=== PATIENT | female | born 1990 | race Caucasian/White ===

== ENCOUNTER 2018-06-24 22:02 | Emergency (ER) | payer BC ==
[2018-06-24 22:07] VITALS: BMI 23.8
--- NOTE | 2018-06-24 22:23 | PDOC ---
History of Present Illness - General Chief Complaint: Diarrhea Stated Complaint: FEVER, DIARRHEA, HEADACHE, BODYACHE Time Seen by Provider: 06/24/18 22:18 History Source: Patient Exam Limitations: No Limitations - History of Present Illness Initial Comments: 06/24/18 22:36 HISTORY OF PRESENT ILLNESS: This is a 28-year-old woman who denies medical history of presents emergency Department with 1 day of fevers, chills, myalgias , abdominal pain, nausea, diarrhea. Patient states she had [place]ian food for dinner last night and after eating couple of bites of food she felt a "knot" in her stomach which is slowly progressed to a nauseous feeling. Patient denies any vomiting. Patient reports having 3 loose stools today with the last one being brown and watery. Patient reports her significant other and son both ate [place] food and have no symptoms. Patient has not checked her temperature but reports subjective fevers. She denies blurry vision, chest pain, shortness of breath. 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 PAST MEDICAL HISTORY: Denies past medical history SURGICAL HISTORY: Denies ALLERGIES: No known drug allergies REVIEW OF SYSTEMS General/Constitutional: +fever and chills. Denies weakness, weight change. HEENT: Denies change in vision. Denies ear pain or discharge. Denies sore throat. Cardiovascular: Denies chest pain or shortness of breath. Respiratory: Denies cough, wheezing, or hemoptysis. Gastrointestinal: Denies vomiting or constipation. Denies rectal bleeding. + nausea, brown watery diarrhea Genitourinary: Denies dysuria, frequency, or change in urination. Musculoskeletal: +myalgias. Denies neck or back pain. Skin and breasts: Denies rash or easy bruising. Neurologic: Denies headache, vertigo, loss of consciousness, or loss of sensation. Psychiatric: Denies depression or anxiety. Endocrine: Denies increased thirst. Denies abnormal weight change. Hematologic/Lymphatic: Denies anemia, easy bleeding, or history of blood clots. Allergic/Immunologic: Denies hives or skin allergy. Denies latex allergy. PHYSICAL EXAM General Appearance: Well-appearing, appropriately dressed. No apparent distress , no intoxication. HEENT: EOMI, PERRLA, normal ENT inspection, normal voice, TMs normal, pharynx normal. No conjunctival pallor. No photophobia, scleral icterus. Neck: Supple. Trachea midline. No tenderness, rigidity, carotid bruit, stridor , lymphadenopathy, or thyromegaly. Respiratory/Chest: Lungs CTAB. No shortness of breath, chest tenderness, respiratory distress, accessory muscle use. No crackles, rales, rhonchi, stridor , wheezing, dullness Cardiovascular: RRR. S1, S2. No JVD, murmur, bradycardia, tachycardia. Vascular Pulses: Dorsalis-Pedis (R): 2+, Dorsalis-Pedis (L): 2+ Gastrointestinal/Abdominal: Normal bowel sounds. Abdomen soft, non-distended. No tenderness or rebound tenderness. No organomegaly, pulsatile mass, guarding, hernia, hepatomegaly, splenomegaly. Lymphatic: No adenopathy, tenderness. Musculoskeletal/Extremities: Normal inspection. FROM of all extremities, normal capillary refill. Pelvis Stable. No CVA tenderness. No tenderness to extremities, pedal edema, swelling, erythema or deformity. Integumentary: Appropriate color, dry, warm. No cyanosis, erythema, jaundice or rash Neurologic: porcelain enameler II-XII intact. Fully oriented, alert. Appropriate mood/affect. Motor strength 5/5. No appreciable EOM palsy, facial droop or sensory deficit. Past History - Past Medical History Allergies/Adverse Reactions: Allergies Allergy/AdvReac Type Severity Reaction Status Date / Time No Known Allergies Allergy Verified 06/24/18 22:07 Home Medications: Ambulatory Orders Vit/Iron Fum/Folic AC [ Tablet] 1 each PO DAILY 03/30/16 Ibuprofen [Motrin -] 600 mg PO QID #28 tablet 04/02/16 Ciprofloxacin [Cipro (Restricted To Id)] 500 mg PO Q12H #10 tablet 06/25/18 Asthma: No Cancer: No Cardiac Disorders: No COPD: No Diabetes: No HTN: No Seizures: No Thyroid Disease: No - Suicide/Smoking/Psychosocial Hx Smoking Status: No Smoking History: Never smoked Have you smoked in the past 12 months: No Number of Cigarettes Smoked Daily: 0 Hx Alcohol Use: No Drug/Substance Use Hx: No Hx Substance Use Treatment: No *Physical Exam - Vital Signs Last Vital Signs Temp Pulse Resp BP Pulse Ox 99.4 F 120 H 18 118/62 100 06/24/18 22:05 06/24/18 22:05 06/24/18 22:05 06/24/18 22:05 06/24/18 22:05 ED Treatment Course - LABORATORY CBC & Chemistry Diagram: 06/24/18 22:42 06/24/18 22:42 Medical Decision Making - Medical Decision Making 06/24/18 22:41 A/P: 28-year-old female with 1 day of subjective fevers, myalgias, nausea and diarrhea Heart rate- 120 Normoactive bowel sounds Abdomen soft nontender nondistended DDx: CARLY, electrolyte imbalance, colitis, influenza, infectious diarrhea Labs, urine, stool, IV fluids, Zofran, influenza testing, EKG 06/25/18 02:15 Laboratory testing reveals WBC of 16.9 with a left shift. CAT scan as read by imaging director of first impressions: Mild diffuse colitis could be due to infection or inflammatory bowel disease. Influenza testing is negative. EKG is reviewed by me and interpreted by Dr. Hernandez: Sinus tachycardia with rate of 118. Normal intervals noted. No ischemic changes present 06/25/18 03:55 Heart rate 104 after receiving 2 L of fluid. Patient still with a mild headache after receiving Tylenol. We'll give Motrin 600 mg orally now and discharge home. *DC/Admit/Observation/Transfer Diagnosis at time of Disposition: Colitis presumed infectious - Discharge Dispostion Disposition: HOME Condition at time of disposition: Stable Decision to Admit order: No - Prescriptions Prescriptions: Ciprofloxacin [Cipro (Restricted To Id)] 500 mg PO Q12H #10 tablet - Referrals Referrals: Devi Reddy MD [Primary Care Provider] - - Patient Instructions Printed Discharge Instructions: DI for Colitis Additional Instructions: Take Cipro 500 mg twice a day until all the medications or been completed. Drink plenty of fluids Eat bland foods until symptoms resolve. Return to emergency department for any worsening symptoms. Thank you very much for choosing us to provide your emergent health care needs. - Post Discharge Activity Forms/Work/School Notes: Back to Work
[2018-06-24] MEDS ORDERED: ONDANSETRON 4 MG/2 ML VIAL IVPUSH ONE (22:33)
[2018-06-24] MEDS ORDERED: SODIUM CHLORIDE 1,000 ML IV STA (22:33)
[2018-06-24 22:52] LABS: BASO % 0.2 % (0-2.0); HEMATOCRIT 37.6 % (32.4-45.2); HEMOGLOBIN 12.5 GM/dL (10.7-15.3); LYMPH % 5.1 % (8-40); MCH 29.7 pg (25.7-33.7); MCHC 33.2 g/dl (32.0-36.0); MEAN CELL VOLUME 89.5 fl (80-96); MEAN PLT VOLUME 9.2 fl (7.5-11.1); MONO % 4.3 % (3.8-10.2); NEUT % 90.4 % (42.8-82.8); PLATELET COUNT 257 K/MM3 (134-434); RDW 13.9 % (11.6-15.6); WHITE BLOOD COUNT 16.9 K/mm3 (4.0-10.0)
[2018-06-24 23:23] LABS: ALBUMIN 3.7 g/dl (3.4-5.0); ALK PHOS 64 U/L (45-117); ANION GAP 8 MMOL/L (8-16); BILIRUBIN,TOTAL 0.8 mg/dL (0.2-1); BLOOD UREA NITROGEN 11 mg/dL (7-18); CALCIUM 8.3 mg/dL (8.5-10.1); CHLORIDE 105 mmol/L (98-107); CO2 24 mmol/L (21-32); CREATININE 0.8 mg/dL (0.55-1.3); GLUCOSE,RANDOM 128 mg/dL (74-106); LIPASE 138 U/L (73-393); POTASSIUM 3.9 mmol/L (3.5-5.1); SGOT/AST 16 U/L (15-37); SGPT/ALT 12 U/L (13-61); SODIUM 137 mmol/L (136-145); TOT PROT 6.9 g/dl (6.4-8.2)
[2018-06-25] MEDS ORDERED: SODIUM CHLORIDE 1,000 ML IV STA (00:28)
[2018-06-25 01:12] LABS: URINE APPEARANCE CLEAR; URINE BILIRUBIN NEGATIVE (<2.0 mg/dL); URINE COLOR YELLOW; URINE GLUCOSE (UA) NEGATIVE (NEGATIVE); URINE KETONE TRACE (NEGATIVE); URINE LEUK ESTERASE NEGATIVE (NEGATIVE); URINE NITRITE NEGATIVE (NEGATIVE); URINE PROTEIN NEGATIVE (NEGATIVE); URINE UROBILINOGEN NEGATIVE mg/dL (0.2-1.0)
[2018-06-25 01:16] LABS: EPI CELLS RARE /HPF (FEW); URINE BACTERIA RARE /hpf (NONE SEEN); URINE HYALINE CAST 1 /lpf; URINE MUCUS MANY
[2018-06-25 02:14] VITALS: BP 106/75; TEMP 98.5
[2018-06-25] MEDS ORDERED: ACETAMINOPHEN 500 MG TABLET (FP) PO ONE (02:19)
[2018-06-25] MEDS ORDERED: ACETAMINOPHEN 325 MG TABLET (FP) ONE (02:43)
[2018-06-25] MEDS ORDERED: IBUPROFEN 600 MG TABLET (FP) PO ONE ×2 (03:51→04:32)
[2018-06-25 04:31] VITALS: PULSE 103
--- NOTE | 2018-06-25 18:50 | EKG ---
Test Reason : Blood Pressure : / mmHG Vent. Rate : 118 BPM Atrial Rate : 118 BPM P-R Int : 162 ms QRS Dur : 066 ms QT Int : 306 ms P-R-T Axes : 058 083 056 degrees QTc Int : 428 ms SINUS TACHYCARDIA NONSPECIFIC T WAVE ABNORMALITY ABNORMAL ECG NO PREVIOUS ECGS AVAILABLE Confirmed by GENI EATON MD ([id number]) on 06/25/2018 6:50:23 PM Referred By: Confirmed By:GENI EATON MD
== END 2018-06-25 04:53 | disposition home or self-care (01) ==
LOC: JER 22:02
PROC: 3E0337Z Introduction of Electrolytic and Water Balance Substance into Peripheral Vein, Percutaneous Approach (ICD-10-PCS; principal; 2018-06-24)
DX: K52.89 Other specified noninfective gastroenteritis and colitis (principal)
CPT/HCPCS: 36415; 74177-TC; 80053; 81003; 81015; 83690; 84703; 85025; 87086; 87804; 93005; 93010; 99284-25; J7030

== ENCOUNTER 2019-07-11 07:35 | Inpatient (IN) | payer BC, OTHER ==
[2019-07-11] MEDS ORDERED: DINOPROSTONE 10 MG VAGINAL SUPPOSITORY VG ONE (07:45)
--- NOTE | 2019-07-11 08:39 | HP ---
Past Medical History - Primary Care Physician PCP:: Jeffry Owens - Admission Chief Complaint: 29yo P1 with at EGA 40w0d admitted for labor indx. History of Present Illness: complicated by post dates . History Source: Patient Limitations to Obtaining History: No Limitations - Past Medical History CREMATOR: No: Alzheimer's, CVA, Dementia, Migraine, Multiple Sclerosis, Peripheral Neuropathy, Parkinson's, Seizure, Syncope, TIA, Vertigo, Other Cardiovascular: No: AFIB, Aneurysm, Aortic Insufficiency, Aortic Stenosis, CAD, CHF, Deep Vein Thrombosis, HTN, Hyperlipdemia, [place], Mitral Insufficiency, Mitral Stenosis, Murmur, Pulmonary Hypertension, Other Pulmonary: No: Asthma, Bronchitis, Cancer, COPD, O2 Dependent, Pneumonia, Previously Intubated, Pulmonary Embolus, Pulmonary Fibrosis, Sleep Apnea, Other Gastrointestinal: No: Ascites, Cancer, Constipation, Crohn's Disease, Diverticulitis, Diverticulosis, Esophageal Varices, Gastritis, GERD, GI Bleed, Hemorrhoids, Hiatal Hernia, Inflamatory Bowel Disease, Irritable Bowel Disease, Pancreatitis, Peptic Ulcer Disease, Ulcerative Colitis, Other Hepatobiliary: No: Cirrhosis, Cholelithiasis, Cholecystitis, Choledocholithiasis , Hepatitis A, Hepatitis B, Hepatitis C, Other Renal/: No: Renal Failure, Renal Inusuff, BPH, Cancer, Hematuria, Hemodialysis , Neurogenic Bladder, Renal Calculi, UTI, Other Reproductive: No: Ectopic , Endometriosis, Fibroids, PID, Polycystic Ovary Syndrome, Postmenopausal, Other ...: 2 ...Para: 1 () ... Weeks Gestation by Dates: 40 Heme/Onc: No: Anemia, B12 Deficiency, Bleeding Disorder, Cancer, Current Chemotherapy, Current Radiation Therapy, Hemochromatosis, Hypercoaguable State, Myeloproliferative Synd, Sickle Cell Disease, Sickle Cell Trait, Thrombocytopenia, Other Infectious Disease: No: AIDS, C-Diff, Herpes Zoster, HIV, MRSA, STD's, Tuberculosis, VREF, Other Psych: No: Addictions, Anxiety, Bipolar, Depression, Panic, Psychosis, Schizophrenia, Other Musculoskeletal: No: Bursitis, Chronic low back pain, Hemiparesis, Hemiplegia, Osteoarthritis, Paraplegia, Other Rheumatology: No: Fibromyalgia, Gout, Lupus, Rheumatoid Arthritis, Sarcoidosis, Vasculitis, Other ENT: No: Allergic Rhinitis, Sinusitis, Other Endocrine: No: [place]'s Disease, Rankin's Disease, Diabetes Insipidus, Diabetes Mellitus, Hyperparathyroidism, Hyperthyroidism, Hypothyroidism, Osteopenia, SIADH, Other - Past Surgical History Past Surgical History: Yes: None Hx Myomectomy: No Hx Transabdominal Cerclage: No - Smoking History Smoking history: Never smoked Have you smoked in the past 12 months: No Aproximately how many cigarettes per day: 0 - Alcohol/Substance Use Hx Alcohol Use: No History of Substance Use: reports: None - Social History Usual Living Arrangement: Yes: With Spouse, With Child Do you think of yourself as: Straight/Heterosexual ADL: Independent 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 History of Recent Travel: No Home Medications - Allergies Allergies/Adverse Reactions: Allergies Allergy/AdvReac Type Severity Reaction Status Date / Time No Known Allergies Allergy Verified 07/04/19 09:47 - Home Medications Home Medications: Ambulatory Orders Vit/Iron Fum/Folic AC [ Tablet] 1 each PO DAILY 03/30/16 Family Medical History Family Hx Cancer: Mother (colon cancer) Review of Systems - Review of Systems Constitutional: reports: No Symptoms Eyes: reports: No Symptoms HENT: reports: No Symptoms Neck: reports: No Symptoms Cardiovascular: reports: No Symptoms Respiratory: reports: No Symptoms Gastrointestinal: reports: No Symptoms Genitourinary: reports: No Symptoms Breasts: reports: No Symptoms Reported Musculoskeletal: reports: No Symptoms Integumentary: reports: No Symptoms Neurological: reports: No Symptoms Endocrine: reports: No Symptoms Hematology/Lymphatic: reports: No Symptoms Psychiatric: reports: No Symptoms Pain Intensity: 0 Physical Exam - Maternity Constitutional: Yes: Well Nourished, No Distress, Calm Eyes: Yes: WNL, Conjunctiva Clear HENT: Yes: WNL, Atraumatic, Normocephalic Neck: Yes: WNL, Supple, Trachea Midline Cardiovascular: Yes: WNL, Regular Rate and Rhythm Lungs: Clear to auscultation, Normal air movement - Abdominal Exam/OB Fundal Height: 40 Number of Fetuses: Single Presentation: Vertex Contractions: Yes Regularity: Irritability Intensity: Unaware Heart Rate (range): 140 Heart Rate Location: Midline Category: I Accelerations: Non-Uniform Decelerations: None - Vaginal Exam/OB Vaginal Bleediing: No Speculum Exam: No Dilatation (cm): 0 Effacement (%): 50 Amniotic Membrane Status: Intact Station: -4 (Gynecoid pelvimetry) - Physical Exam Musculoskeletal: Yes: WNL Extremities: Yes: WNL Edema: Yes Integumentary: Yes: WNL Deep Tendon Reflex Grade: Normal +2 ...Motor Strength: WNL Psychiatric: Yes: WNL, Alert, Oriented Hemorrhage Risk Assessment - Risk Factors Medium Risk Factors: Yes: None High Risk Factors: Yes: None Risk Score: 1 Risk Level: Medium Risk Imaging - Results Ultrasound: Report Reviewed Assessment/Plan 29yo P1 with at EGA 40w0d admitted for labor indx. Fetus with Category I tracing. Adequate gynecoid pelvimetry. EFW 7.5 lb by Dylan maneuvers. Pt is not in labor. We discussed labor indx. plan for Cervidil cervical ripening followed by pitocin.
[2019-07-11] MEDS ORDERED: DEXTROSE 5%-LACTATED RINGERS 1,000 ML IV SCH (08:45)
[2019-07-11 08:48] VITALS: BMI 35.3
[2019-07-11 09:32] LABS: BASO % 0.4 % (0-2.0); EOS % 1.4 % (0-4.5); HEMATOCRIT 35.6 % (32.4-45.2); HEMOGLOBIN 12.3 GM/dL (10.7-15.3); MCH 32.4 pg (25.7-33.7); MCHC 34.5 g/dl (32.0-36.0); MEAN CELL VOLUME 93.8 fl (80-96); MEAN PLT VOLUME 10.1 fl (7.5-11.1); MONO % 5.2 % (3.8-10.2); PLATELET COUNT 181 K/MM3 (134-434); RBC 3.79 M/mm3 (3.60-5.2); RDW 13.9 % (11.6-15.6); WHITE BLOOD COUNT 9.5 K/mm3 (4.0-10.0)
[2019-07-11 09:50] LABS: INR 0.9 (0.83-1.09); PROTHROMBIN TIME (PATIENT) 10.6 SEC (9.7-13.0)
[2019-07-11 09:53] LABS: ACTIVATED PTT 28.4 SECONDS (25.2-36.5)
[2019-07-11 10:00] LABS: BLOOD UREA NITROGEN 7.5 mg/dL (7-18); CALCIUM 8.8 mg/dL (8.5-10.1); CREATININE 0.6 mg/dL (0.55-1.3); POTASSIUM 4.1 mmol/L (3.5-5.1)
[2019-07-11] MEDS ORDERED: BUTORPHANOL TARTRATE 2 MG/ML VIAL IVPUSH ONE (14:00)
[2019-07-11] MEDS ORDERED: PROMETHAZINE HCL 25 MG/1 ML VIAL IVPB ONE (14:00)
[2019-07-11] MEDS ORDERED: BUTORPHANOL TARTRATE 1 MG/ML VIAL ONE ×2 (14:24)
[2019-07-11] MEDS ORDERED: PROMETHAZINE HCL 25 MG/1 ML VIAL ONE (14:24)
[2019-07-11] MEDS ORDERED: FENTANYL/BUPIVACAINE/NS/PF - PCEA - 50 ML DISP.SYRIN EP ONE (14:28)
[2019-07-11] MEDS ORDERED: NALOXONE HCL 0.4 MG/ML VIAL IVPUSH PRN (14:39)
[2019-07-11] MEDS ORDERED: LIDO 2%/EPI 1:200000 PRESRVFRE (20 ML SDVIAL) ONE (14:44)
[2019-07-11] MEDS: FENTANYL/BUPIVACAINE/NS/PF - PCEA - 50 ML DISP.SYRIN EP SCH (14:55)
[2019-07-11] MEDS ORDERED: TERBUTALINE SULFATE 1 MG/1 ML VIAL SQ ONE ×2 (15:19→15:59)
[2019-07-11] MEDS ORDERED: ELECTROLYTE-148 SOLN 1,000 ML IV SCH (16:00)
--- NOTE | 2019-07-11 16:19 | PN ---
Ante-Partal Exam - Subjective Subjective: Pt had Cervidil removed due to tachysystole at 2pm. She then requested an epidural for pain Pt had several variable and prolonged decels with baseline at 170 at 2:56pm after the epidural was placed. The pt was given IV fluids bolus, changed to later position and administered O2 by face mask. Pt is comfortable with epidural. The contractions were still noted to be trippling and sometimes q 1min. Since late decels were noted, the patient was given Terbutaline SQ x 1 to treat tachysystole. Now the contractions have spaced out to q 3min. The baseline is 160 with moderate variability and accels; no decels. Vital Signs: Vital Signs Temperature 98.1 F 07/11/19 15:00 Pulse Rate 95 H 07/11/19 14:55 Respiratory Rate 20 07/11/19 14:55 Blood Pressure 125/53 L 07/11/19 14:55 O2 Sat by Pulse Oximetry (%) 98 07/11/19 14:55 Bleeding: No Headache: No Visual changes: No Right upper quadrant pain: No Pain (scale 1-10): 0 - Contractions Contractions: Yes Regularity: Regular Intensity: Mild/Mod Monitor Mode: External - Exam during Labor Heart Rate: 150 Variability: Moderate Heart Rate Location: Midline Category: I Monitor Accelerations: Present Monitor Decelerations: None Exam: Vaginal Dilatation (cm): 4 Effacement (%): 80 Amniotic Membrane Status: Bulging Presentation: Vertex Station: -2 - Intrapartum Hemorrhage Risk Medium Risk Factors: None High Risk Factors: None Risk Score: 0 Risk Level: Low Risk - Assessment/Plan Assessment/Plan: Monitor labor and fetus. Plan to AROM and .
[2019-07-11] MEDS ORDERED: LIDOCAINE HCL 1% PRESERVATIVE FREE - 30ML VIAL ONE (18:59)
[2019-07-11] MEDS ORDERED: OXYTOCIN 20 UNITS in 0.9% NS 20 UNIT/1,000 ML INFUS.BAG IV ONE (18:59)
[2019-07-11] MEDS ORDERED: METHYLERGONOVINE MALEATE 0.2 MG/1 ML AMP IM PRN (19:23)
[2019-07-11] MEDS ORDERED: ACETAMINOPHEN 325 MG TABLET (FP) PO PRN (19:23)
[2019-07-11] MEDS ORDERED: BENZOCAINE 20% 57 GM BOTTLE TP PRN (19:23)
[2019-07-11] MEDS ORDERED: WITCH HAZEL 50% (TUCKS) 40 PAD/JAR PAD TP PRN (19:23)
[2019-07-11] MEDS ORDERED: BENZOCAINE 28 GM HEMORRHOIDAL OINTMENT TP PRN (19:23)
[2019-07-11] MEDS ORDERED: BISACODYL 10 MG SUPP.RECT RC PRN (19:23)
[2019-07-11] MEDS ORDERED: OXYTOCIN 20 UNITS in 0.9% NS 20 UNIT/1,000 ML INFUS.BAG IV SCH (19:30)
[2019-07-12] MEDS: IBUPROFEN 600 MG TABLET (FP) PO PRN ×2 (06:00→23:15)
[2019-07-12 08:06] LABS: BASO % 0.4 % (0-2.0); EOS % 0.7 % (0-4.5); HEMATOCRIT 34.6 % (32.4-45.2); HEMOGLOBIN 11.3 GM/dL (10.7-15.3); LYMPH % 15.3 % (8-40); MCH 31.2 pg (25.7-33.7); MCHC 32.8 g/dl (32.0-36.0); MEAN CELL VOLUME 94.9 fl (80-96); MEAN PLT VOLUME 10.1 fl (7.5-11.1); MONO % 5.8 % (3.8-10.2); NEUT % 77.8 % (42.8-82.8); PLATELET COUNT 168 K/MM3 (134-434); RBC 3.64 M/mm3 (3.60-5.2); RDW 14.1 % (11.6-15.6); WHITE BLOOD COUNT 12.5 K/mm3 (4.0-10.0)
[2019-07-12] MEDS: PRENATAL VITAMINS W/ FOLIC ACID TABLET (FP) PO SCH (11:00)
--- NOTE | 2019-07-12 11:45 | PN ---
Delivery - Delivery Vaginal Delivery: No Problems, Spontaneous Type of Anesthesia: Epidural Episiotomy/Laceration: None EBL (cc): 300 Delivery, Single - Stages of Labor Date 1st Stage Initiatied: 07/11/19 Time 1st Stage Initiated: 16:30 Date 2nd Stage Initiated: 07/11/19 Time 2nd Stage Initiated: 18:45 Date of Delivery: 07/11/19 Time of Delivery: 19:08 Date Placenta Delivered: 07/11/19 Time Placenta Delivered: 19:15 Placenta: Yes: Spontaneous, Normal Configuration - Condition of Infant Founder Ceo & President/Tune Up Mechanic Present: No Gender: Female Weight: 4.082 kg Position: Left, OA Total Hours ROM (Hrs/Mins): 2hr45 - 1 Minute Total Score: 9 5 Minutes Total Score: 9 - Feeding Plan Initial Plan: Exclusive throughout hospitalization Benefits of Exclusively reinforced: Yes Remarks - Remarks Remarks: w/o complications.
[2019-07-12] MEDS ORDERED: SENNOSIDES/DOCUSATE COMBO (SENNA PLUS) TABLET (UD) PO PRN (22:00)
[2019-07-12] MEDS: FENTANYL/BUPIVACAINE/NS/PF - PCEA - 50 ML DISP.SYRIN EP SCH (22:14)
--- NOTE | 2019-07-13 08:05 | PN ---
Post Progress Note - Subjective Subjective: Patient without acute complaints. Reports tolerating oral intake without nausea or vomiting. Ambulating without dizziness. Denies fevers or chills. Pain well controlled with oral pain medication. without difficulty. Passing flatus. Post Day: 2 Type of Delivery: Vital Signs: Vital Signs Temperature 98.8 F 07/12/19 22:00 Pulse Rate 74 07/12/19 22:00 Respiratory Rate 18 07/12/19 22:00 Blood Pressure 107/59 L 07/12/19 22:00 O2 Sat by Pulse Oximetry (%) 99 07/11/19 20:15 Breast Exam: Yes: Soft Uterus: Yes: Fundus Firm, Fundus below umbilicus Abdomen/GI: Yes: Abdomen soft, Passing flatus, Tolerating PO. No: Abdominal Distention, Tender Lochia: Yes: Rubra Lochia, amount: Small Extremities: Yes: Calves non-tender. No: Edema Activity: Ambulating - Labs Labs: CBC WBC 12.5 K/mm3 (4.0-10.0) H 07/12/19 07:40 RBC 3.64 M/mm3 (3.60-5.2) 07/12/19 07:40 Hgb 11.3 GM/dL (10.7-15.3) 07/12/19 07:40 Hct 34.6 % (32.4-45.2) 07/12/19 07:40 MCV 94.9 fl (80-96) 07/12/19 07:40 MCH 31.2 pg (25.7-33.7) 07/12/19 07:40 MCHC 32.8 g/dl (32.0-36.0) 07/12/19 07:40 RDW 14.1 % (11.6-15.6) 07/12/19 07:40 Plt Count 168 K/MM3 (134-434) 07/12/19 07:40 MPV 10.1 fl (7.5-11.1) 07/12/19 07:40 Absolute Neuts (auto) 9.7 K/mm3 (1.5-8.0) H 07/12/19 07:40 Neutrophils % 77.8 % (42.8-82.8) 07/12/19 07:40 Lymphocytes % 15.3 % (8-40) 07/12/19 07:40 Monocytes % 5.8 % (3.8-10.2) 07/12/19 07:40 Eosinophils % 0.7 % (0-4.5) 07/12/19 07:40 Basophils % 0.4 % (0-2.0) 07/12/19 07:40 Nucleated RBC % 0 % (0-0) 07/12/19 07:40 Assessment/Plan 29 yo PPD # 2 s/p , afebrile, vital signs stable, doing well 1. Patient stable for discharge home today. 2. Patient encouraged to contact MD for: - Severe pain not controlled by oral pain medication - Fevers or chills - Nausea or vomiting, intolerance of oral intake 3. Patient to follow up in office in 4-6 weeks for visit
[2019-07-13 08:07] VITALS: BP 102/58; PULSE 66; TEMP 98.3
[2019-07-13] MEDS: PRENATAL VITAMINS W/ FOLIC ACID TABLET (FP) PO SCH (10:01)
== END 2019-07-13 11:40 | disposition home or self-care (01) | DRG 807 ==
LOC: JLDR 07:35 → J3W 22:41
PROVIDERS: ADMIT Obstetrics & Gynecology; ATTEND Obstetrics & Gynecology
PROC: 10E0XZZ Delivery of Products of Conception, External Approach (ICD-10-PCS; principal; 2019-07-11)
DX: O48.0 Post-term pregnancy (principal); O69.81X0 Labor and delivery complicated by cord around neck, without compression, not applicable or unspecified; Z3A.40 40 weeks gestation of pregnancy; Z37.0 Single live birth
CPT/HCPCS: 36415; 36600; 59409; 80048; 82803; 85025; 85610; 85730; 86593; 86850; 86900; 86901

== ENCOUNTER 2021-06-17 12:30 | Inpatient (IN) | payer BC, OTHER ==
[2021-06-17] MEDS ORDERED: ELECTROLYTE-148 SOLN 1,000 ML IV SCH (13:00)
[2021-06-17 13:44] LABS: BASO % 0.7 % (0-2.0); HEMATOCRIT 36.7 % (32.4-45.2); HEMOGLOBIN 12.6 GM/dL (10.7-15.3); LYMPH % 14.9 % (8-40); MCH 31.7 pg (25.7-33.7); MCHC 34.4 g/dl (32.0-36.0); MEAN PLT VOLUME 9.5 fl (7.5-11.1); MONO % 4.7 % (3.8-10.2); NEUT % 78.7 % (42.8-82.8); PLATELET COUNT 196 10^3/uL (134-434); RBC 3.99 M/mm3 (3.60-5.2); RDW 13.6 % (11.6-15.6); WHITE BLOOD COUNT 11.5 K/mm3 (4.0-10.0)
[2021-06-17 13:53] LABS: INR 0.85 (0.83-1.09); PROTHROMBIN TIME (PATIENT) 9.9 SEC (9.7-13.0)
[2021-06-17 13:56] LABS: ACTIVATED PTT 26.8 SECONDS (25.2-36.5)
[2021-06-17 14:13] LABS: BLOOD UREA NITROGEN 9.2 mg/dL (7-18)
[2021-06-17 14:16] LABS: CREATININE 0.6 mg/dL (0.55-1.3)
[2021-06-17 14:50] VITALS: BMI 33.8
[2021-06-17] MEDS ORDERED: FENTANYL/BUPIVACAINE/NS/PF - PCEA - 50 ML DISP.SYRIN EP ONE ×2 (15:31→15:50)
[2021-06-17] MEDS ORDERED: PCA PUMP NR ONE ×2 (15:31→20:28)
[2021-06-17] MEDS ORDERED: NALOXONE HCL 0.4 MG/ML VIAL IVPUSH PRN (15:38)
[2021-06-17] MEDS: FENTANYL/BUPIVACAINE/NS/PF - PCEA - 50 ML DISP.SYRIN EP SCH (16:08)
[2021-06-17] MEDS ORDERED: ePHEDrine SULFATE 50 MG/1 ML AMPULE ONE (16:44)
[2021-06-17] MEDS ORDERED: PHENYLEPHRINE HCL 10 MG/1 ML SINGLE DOSE VIAL ONE (16:57)
[2021-06-17] MEDS ORDERED: OXYTOCIN 30 UNITS in 0.9% NS 30 UNIT/500 ML INFUS.BAG IVPB ONE (17:47)
[2021-06-17] MEDS ORDERED: OXYTOCIN 30 UNITS in 0.9% NS 30 UNIT/500 ML INFUS.BAG IVPB SCH (18:00)
[2021-06-17] MEDS ORDERED: OXYTOCIN 20 UNITS in 0.9% NS 20 UNIT/1,000 ML INFUS.BAG IV ONE (19:55)
[2021-06-17] MEDS ORDERED: LIDOCAINE HCL 1% PRESERVATIVE FREE - 30ML VIAL ONE (19:55)
[2021-06-17] MEDS ORDERED: BENZOCAINE 28 GM HEMORRHOIDAL OINTMENT TP PRN (20:56)
[2021-06-17] MEDS ORDERED: ACETAMINOPHEN 325 MG TABLET (FP) PO PRN (20:56)
[2021-06-17] MEDS ORDERED: WITCH HAZEL 50% (TUCKS) 40 PAD/JAR PAD TP PRN (20:56)
[2021-06-17] MEDS ORDERED: BENZOCAINE 20% 57 GM BOTTLE TP PRN (20:56)
[2021-06-17] MEDS ORDERED: IBUPROFEN 600 MG TABLET (FP) PO PRN (20:56)
[2021-06-17] MEDS ORDERED: BISACODYL 10 MG SUPP.RECT RC PRN (20:56)
[2021-06-17] MEDS ORDERED: METHYLERGONOVINE MALEATE 0.2 MG/1 ML AMP IM PRN (20:56)
[2021-06-17] MEDS ORDERED: OXYTOCIN 20 UNITS in 0.9% NS 20 UNIT/1,000 ML INFUS.BAG IV SCH (21:00)
[2021-06-17 21:35] LABS: CORD BASE EXCESS -5.9 mmol/L (0-2); CORD HCO3 21.1 mmHg (20-29); CORD pH 7.27 (7.14-7.44)
[2021-06-17 21:36] LABS: CORD BASE EXCESS -7.5 mmol/L (0-2); CORD HCO3 19.2 mmHg (20-29); CORD PCO2 43.2 mmHg (30-78); CORD pH 7.266 (7.14-7.44)
[2021-06-18 06:55] LABS: BASO % 0.4 % (0-2.0); EOS % 0.9 % (0-4.5); HEMATOCRIT 34.9 % (32.4-45.2); HEMOGLOBIN 11.9 GM/dL (10.7-15.3); LYMPH % 17.2 % (8-40); MCH 31.6 pg (25.7-33.7); MCHC 34.2 g/dl (32.0-36.0); MEAN CELL VOLUME 92.4 fl (80-96); MEAN PLT VOLUME 9.9 fl (7.5-11.1); MONO % 5.8 % (3.8-10.2); NEUT % 75.7 % (42.8-82.8); PLATELET COUNT 187 10^3/uL (134-434); RBC 3.78 M/mm3 (3.60-5.2); RDW 13.7 % (11.6-15.6); WHITE BLOOD COUNT 14.3 K/mm3 (4.0-10.0)
[2021-06-18] MEDS: PRENATAL VITAMINS W/ FOLIC ACID TABLET (FP) PO SCH (09:30)
[2021-06-18] MEDS ORDERED: FLU VACC QS2021-22(6MOS UP)/PF 60 MCG/0.5 ML SYRINGE IM ONE (10:00)
[2021-06-18] MEDS: FENTANYL/BUPIVACAINE/NS/PF - PCEA - 50 ML DISP.SYRIN EP SCH (18:51)
[2021-06-18] MEDS ORDERED: SENNOSIDES/DOCUSATE COMBO (SENNA PLUS) TABLET (UD) PO PRN (22:00)
[2021-06-19] MEDS: PRENATAL VITAMINS W/ FOLIC ACID TABLET (FP) PO SCH (09:55)
[2021-06-19 12:03] VITALS: BP 102/63; PULSE 82; TEMP 98.6
== END 2021-06-19 12:00 | disposition home or self-care (01) | DRG 807 ==
LOC: JLDR 12:30 → J3W 23:00
PROVIDERS: ADMIT Obstetrics & Gynecology; ATTEND Obstetrics & Gynecology
PROC: 10E0XZZ Delivery of Products of Conception, External Approach (ICD-10-PCS; principal; 2021-06-17)
DX: O80 Encounter for full-term uncomplicated delivery (principal); Z37.0 Single live birth; Z3A.38 38 weeks gestation of pregnancy
CPT/HCPCS: 36415; 36600; 59409; 80048; 82803; 85025; 85610; 85730; 86780; 86850; 86900; 86901; 90686; C9803; U0003; U0005